=== PATIENT | female | born 1990 | race Caucasian/White ===

== ENCOUNTER 2017-04-07 14:00 | Inpatient (IN) | payer OTHER ==
[2017-04-14] MEDS ORDERED: Heparin 5,000 UNITS/ML VIAL ONE (08:49)
[2017-04-14] MEDS ORDERED: CEFAZOLIN/Water 2 GM/20 ML SYRINGE ONE (08:49)
[2017-04-14] MEDS ORDERED: Bupivacaine/Epinephrine 0.25% 30 ML VIAL ONE (08:57)
[2017-04-14] MEDS ORDERED: Midazolam HCl 2 mg/2 ml Vial ONE ×2 (09:05→09:06)
[2017-04-14] MEDS ORDERED: Lidocaine 1% (PF) 30 ML VIAL ONE (09:06)
[2017-04-14] MEDS ORDERED: Fentanyl 250 MCG/5 ML VIAL ONE (09:06)
[2017-04-14] MEDS ORDERED: HYDROmorphone 10 mg/100 ml CADD IVPB PRN (09:10)
[2017-04-14] MEDS ORDERED: Meperidine HCl/PF 25 MG/ML VIAL SLOW IVP PRN (09:10)
[2017-04-14] MEDS ORDERED: Zolpidem Tartrate 5 MG TAB PO PRN (09:10)
[2017-04-14] MEDS ORDERED: diphenhydrAMINE 25 MG CAP PO PRN (09:10)
[2017-04-14] MEDS ORDERED: Promethazine HCl 25 MG/ML VIAL SLOW IVP PRN (09:10)
[2017-04-14] MEDS ORDERED: Promethazine HCl 25 MG/ML VIAL IM PRN ×3 (09:10→10:22)
[2017-04-14] MEDS ORDERED: diphenhydrAMINE 50 MG/ML VIAL IM PRN (09:10)
[2017-04-14] MEDS ORDERED: Ondansetron HCl/PF 4 MG/2 ML Vial IVP PRN ×3 (09:10→10:22)
[2017-04-14] MEDS ORDERED: HYDROmorphone 2 MG/ML VIAL SLOW IVP PRN (09:10)
[2017-04-14] MEDS ORDERED: diphenhydrAMINE 50 MG/ML VIAL IVP PRN ×2 (09:10→10:22)
[2017-04-14] MEDS ORDERED: Naloxone HCl 0.4 mg/ml Vial IV PRN (09:10)
[2017-04-14] MEDS ORDERED: Communication Order-Pharmacy FS SCH (09:15)
[2017-04-14] MEDS ORDERED: Dextrose 5% in Water 1,000 ML IV PRN (10:22)
[2017-04-14] MEDS ORDERED: Hydrocodone-Acetamin 15 ML UDCUP PO PRN (10:22)
[2017-04-14] MEDS ORDERED: hydrALAZINE 20 MG/ML VIAL SLOW IVP PRN (10:22)
[2017-04-14] MEDS ORDERED: Dextrose 50% Abboject 50 ML SYRINGE SLOW IVP PRN (10:22)
[2017-04-14] MEDS ORDERED: D5 1/2 NS w/20 mEq KCL 1,000 ML ONE (11:07)
[2017-04-14] MEDS ORDERED: Ondansetron HCl/PF 4 MG/2 ML Vial ONE ×2 (11:08→15:12)
[2017-04-14] MEDS ORDERED: Acetaminophen 1,000 MG in Premix Bag 1 BAG IVPB SCH (12:00)
--- NOTE | 2017-04-14 12:01 | OP ---
DATE OF PROCEDURE: 04/14/2017 PREOPERATIVE DIAGNOSIS: Morbid obesity. SURGEON: Danielito Maldonado M.D. PROCEDURE: Laparoscopic sleeve gastrectomy, esophagogastroscopy. INDICATIONS: This is a 26-year-old female, morbidly obese, who has attempted multiple weight loss pr ograms without success. FINDINGS: A 38 Vietnamese bougie used. PROCEDURE IN DETAIL: After informed consent was obtained, the patient was taken to the operating [facility] m and given general endotracheal anesthesia. She was placed in the supine position. The abdomen was prepped and draped in usual fashion. Local anesthesia infiltrated subcutaneously and deep and a 12 mm incision was performed 8 inches below the xiphoid slightly to the left. Veress needle inserted. Drop test performed. Pneumoperitoneum was created to a volume of 2 liters of carbon dioxide. Utiliz ing a bladeless 12 mm trocar and 0 degree laparoscope direct visual entry in the abdominal cavity was performed. Pneumoperitoneum was created to a pressure of 15 mmHg. The patient placed in steep reve rse Trendelenburg position. Nathansen liver retractor inserted. Left lobe of liver retracted superi roberto carlos. The pylorus was identified and a 12 mm port placed on the right beneath it, two 12s placed lef t subcostal. The omentum was taken off the greater curvature 5 cm from the pylorus utilizing the Lig aSure. Short gastrics divided with the LigaSure. The left crura defined with the LigaSure. A 38-Fr ench bougie inserted directed into the antrum. The linear 60 mm green load stapler used to divide th e antrum to the bougie, gold load along the bougie, and a series of blues through the angle of His. Intraoperative endoscopy was performed. The video endoscope inserted under direct vision and advance d into the sleeve. The staple line inspected. There was no bleeding. Staple line then tested by in flating the new stomach with pressurized air under water. There is no air leak. Stomach decompresse d. Scope removed. The remnant stomach removed from the abdomen through the left lateral port site. The fascia closed with 0 Vicryl suture and the GraNee needle. Skin closed with interrupted 4-0 Rapi de. Dermabond applied. The patient tolerated the procedure well and was transferred to recovery in good condition. Sponge and needle count verified correct x2.
[2017-04-14] MEDS: D5 1/2 NS w/20 mEq KCL 1,000 ML IV SCH ×2 (14:21→20:03)
[2017-04-14] MEDS: Ketorolac Tromethamine 30 MG/ML VIAL IVP SCH ×2 (14:21→18:18)
[2017-04-14 14:24] VITALS: BMI 45.4
[2017-04-14] MEDS ORDERED: Dexamethasone 20 MG/5 ML VIAL ONE (15:12)
[2017-04-14] MEDS ORDERED: Glycopyrrolate 0.2 MG/ML 5 ML SYRINGE ONE (15:12)
[2017-04-14] MEDS ORDERED: Propofol 200 MG/20 ML VIAL ONE (15:12)
[2017-04-14] MEDS ORDERED: Lidocaine 1% PF 5 ML VIAL ONE (15:12)
[2017-04-14] MEDS ORDERED: Ketorolac Tromethamine 30 MG/ML VIAL ONE (15:12)
[2017-04-14] MEDS: Acetaminophen 1,000 MG in Premix Bag 1 BAG IVPB SCH ×2 (15:52→20:49)
[2017-04-14] MEDS: CEFAZOLIN/Water 2 GM/20 ML SYRINGE SLOW IVP SCH (18:19)
[2017-04-15] MEDS: Ketorolac Tromethamine 30 MG/ML VIAL IVP SCH ×3 (01:05→11:41)
[2017-04-15] MEDS: CEFAZOLIN/Water 2 GM/20 ML SYRINGE SLOW IVP SCH (01:06)
[2017-04-15] MEDS: D5 1/2 NS w/20 mEq KCL 1,000 ML IV SCH ×3 (02:52→09:28)
[2017-04-15] MEDS: Acetaminophen 1,000 MG in Premix Bag 1 BAG IVPB SCH ×2 (03:08→08:51)
[2017-04-15 04:35] LABS: #Lymphocytes 1.9 thou/uL (1.20-3.40); #Monocytes 0.9 thou/uL (0.11-0.59); #Neutrophils 5.8 thou/uL (1.40-6.50); %Eosinophils 0.1 % (0.0-10.0); %Lymphocytes 22.4 % (21.0-51.0); %Monocytes 10.1 % (0.0-10.0); %Neutrophils 67.4 % (42.0-75.0); Hemoglobin 10.5 g/dL (12.0-16.0); Mean Corpuscular HGB CONC 33.3 g/dL (32.0-36.0); Mean Corpuscular Hemoglobin 28.6 pg (27.0-31.0); Mean Corpuscular Volume 85.9 fl (81.0-99.0); Mean Platelet Volume 8.8 fL (7.4-10.4); Platelet Count 205 thou/uL (130-400); RBC Distribution Width 12.9 % (11.5-14.5); Red Blood Cell (RBC) Count 3.66 mill/uL (4.20-5.40); White Blood Cell (WBC) Count 8.6 thou/uL (4.8-10.8)
[2017-04-15 04:47] LABS: Anion Gap 10 mmol/L (10-20); BUN (Urea Nitrogen) Less than 4 mg/dL (7.0-18.7); Calc. Creatinine Clearance 275 mL/min (70-130); Calcium 8.8 mg/dL (7.8-10.44); Carbon Dioxide 24 mmol/L (22-29); Chloride 108 mmol/L (98-107); Estimated GFR-MDRD Greater than 90; Glucose 116 mg/dL (70-105); Potassium 3.8 mmol/L (3.5-5.1); Sodium 138 mmol/L (136-145)
[2017-04-15] MEDS ORDERED: Pantoprazole 40 MG VIAL IVP SCH (09:00)
[2017-04-15] MEDS ORDERED: Enoxaparin Sodium 40 MG/0.4 ML SYRINGE SC SCH (09:00)
--- NOTE | 2017-04-15 09:50 | RAD ---
LIMITED UPPER GI: 04/15/2017 HISTORY: Post bariatric surgery. FLUOROSCOPY: Fluoroscopy time is 0.7 minutes. Total dose is 2165.8 mGy per cm2. FINDINGS: Approximately 15 mL of Gastrografin was administered. There was transient holdup of contrast at the level of the GE junction, but contrast eventually passes into the stomach and subsequently into the s mall bowel. AP and oblique imaging were performed. There was no extravasation of contrast seen. Hoffman rgical clips overly the left upper quadrant, and there are post surgical changes related to the gastr ic sleeve procedure. IMPRESSION: Post surgical changes related to gastric sleeve procedure. There is transient holdup of contrast at the level of the gastroesophageal junction, but there is no extravasation of contrast to suggest a le ak, and contrast extends into the small bowel. POS: [facility]
[2017-04-15 11:50] VITALS: BP 108/77; TEMP 98.1
--- NOTE | 2017-04-15 14:04 | DIS ---
DISCHARGE DIAGNOSIS: Morbid obesity. PROCEDURES DURING ADMISSION: Laparoscopic sleeve gastrectomy, intraoperative esophagogastroscopy, po stoperative Gastrografin swallow. HOSPITAL COURSE: The patient was admitted, taken to the operating room where she underwent sleeve ga strectomy. Postoperatively, her x-ray is fine. She was started on liquids. She is tolerating well. She is discharged home in good condition on hydrocodone and Zofran. She will follow up with me in 2 weeks.
== END 2017-04-15 13:45 | disposition home or self-care (01) | DRG 621 ==
LOC: SURG A 04-14 07:11 → SURG B 04-14 12:38 → EEVIPCON 04-14 14:00
PROVIDERS: ADMIT Surgery; ATTEND Surgery
PROC: 0DB64Z3 Excision of Stomach, Percutaneous Endoscopic Approach, Vertical (ICD-10-PCS; principal; 2017-04-14)
PROC: 0DJ68ZZ Inspection of Stomach, Via Natural or Artificial Opening Endoscopic (ICD-10-PCS; 2017-04-14)
DX: E66.01 Morbid (severe) obesity due to excess calories (principal); Z68.42 Body mass index [BMI] 45.0-49.9, adult
CPT/HCPCS: 36415; 74241; 80048; 85025; 88307; 88312; 94760; C9113; J0131; J1100; J1644; J1650; J1885; J2001; J2250; J2405; J2704; J3010

== ENCOUNTER 2017-04-07 14:08 | Outpatient (CLI) | payer OTHER ==
[2017-04-07 15:06] LABS: #Eosinphils 0.2 thou/uL (0.0-0.7); #Lymphocytes 2.9 thou/uL (1.20-3.40); #Monocytes 0.5 thou/uL (0.11-0.59); #Neutrophils 4.5 thou/uL (1.40-6.50); %Basophils 0.1 % (0.0-1.0); %Eosinophils 1.9 % (0.0-10.0); %Lymphocytes 35.8 % (21.0-51.0); %Monocytes 6.7 % (0.0-10.0); %Neutrophils 55.5 % (42.0-75.0); Hemoglobin 11.7 g/dL (12.0-16.0); Mean Corpuscular HGB CONC 33.3 g/dL (32.0-36.0); Mean Corpuscular Hemoglobin 28.3 pg (27.0-31.0); Mean Corpuscular Volume 84.9 fl (81.0-99.0); Mean Platelet Volume 8.4 fL (7.4-10.4); Platelet Count 217 thou/uL (130-400); RBC Distribution Width 12.9 % (11.5-14.5); Red Blood Cell (RBC) Count 4.14 mill/uL (4.20-5.40); White Blood Cell (WBC) Count 8.1 thou/uL (4.8-10.8)
--- NOTE | 2017-04-07 15:22 | RAD ---
CHEST TWO VIEW: History: Pre op. Comparison: None. FINDINGS: Lungs are clear. No pneumothorax or effusion. Cardiac silhouette and mediastinal contours are within normal limits. IMPRESSION: No acute intrathoracic abnormality. POS: [facility]
[2017-04-07 15:27] LABS: ALT (SGPT) 22 U/L (8-55); AST (SGOT) 17 U/L (5-34); Albumin 4.2 g/dL (3.5-5.0); Alkaline Phosphatase 92 U/L (40-150); Anion Gap 10 mmol/L (10-20); BUN (Urea Nitrogen) 10 mg/dL (7.0-18.7); Bilirubin, Direct 0.2 mg/dL (0.1-0.3); Bilirubin, Total 0.5 mg/dL (0.2-1.2); Calc. Creatinine Clearance 0 mL/min (70-130); Calcium 9.2 mg/dL (7.8-10.44); Carbon Dioxide 28 mmol/L (22-29); Chloride 105 mmol/L (98-107); Estimated GFR-MDRD Greater than 90; Globulin 3.1 g/dL (2.4-3.5); Glucose 90 mg/dL (70-105); Potassium 3.7 mmol/L (3.5-5.1); Protein, Total 7.3 g/dL (6.0-8.3); Sodium 139 mmol/L (136-145)
--- NOTE | 2017-04-09 08:02 | EKG ---
Test Reason : Blood Pressure : / mmHG Vent. Rate : 068 BPM Atrial Rate : 068 BPM P-R Int : 170 ms QRS Dur : 086 ms QT Int : 410 ms P-R-T Axes : 064 068 050 degrees QTc Int : 435 ms Normal sinus rhythm Normal ECG No previous ECGs available Confirmed by DR. Pavan BAUGH ([id number]) on 04/09/2017 8:02:42 AM Referred By: JEZ Confirmed By:DR. Pavan BAUGH
== END 2017-04-07 14:09 | disposition home or self-care (01) ==
LOC: LABBT 14:08
PROVIDERS: ATTEND Surgery
DX: Z01.818 Encounter for other preprocedural examination (principal); E66.01 Morbid (severe) obesity due to excess calories
CPT/HCPCS: 71046; 80053; 80076; 83036; 85025; 93005; 93010

== ENCOUNTER 2017-08-18 15:54 | Outpatient (CLI) | payer OTHER | END 2017-08-18 15:55 | disposition home or self-care (01) | LOC: BICULT 15:54 | PROVIDERS: ATTEND Internal Medicine | DX: N64.89 Other specified disorders of breast (principal); N64.4 Mastodynia ==

== ENCOUNTER 2018-11-03 07:21 | Outpatient (CLI) | payer OTHER ==
--- NOTE | 2018-11-03 09:25 | ULT ---
ABDOMINAL ULTRASOUND: DATE: 11/03/2018. COMPARISON: None. HISTORY: Abnormal liver function tests. TECHNIQUE: Multiplanar, muniz scale, sonographic imaging of the abdomen provided. FINDINGS: Pancreas is poorly assessed secondary to obscuration by bowel gas and patient body habitus. The hepatic parenchyma is heterogeneous and echogenic suggesting hepatocellular disease, such as hepa tic steatosis. The common bile duct measures 3-4 mm, within normal limits. The gallbladder is contracted, limiting assessment of the gallbladder wall. Gallbladder wall is at t he upper limits of normal in size. The gallbladder appears filled with numerous echogenic foci with posterior shadowing suggesting multiple gallstones. The right kidney measures 12 cm in craniocaudal dimension and demonstrates no evidence for stone, hyd ronephrosis, or mass. The spleen measures up to 10.4 cm, within normal limits. Left kidney measures 10.4 cm craniocaudal d imension and demonstrates no evidence for stone, hydronephrosis, or mass lesion. The charge preparation technician does not report a positive Carter's sign. Imaged IVC and aorta appear within normal limits. IMPRESSION: Cholelithiasis. No sonographic evidence of acute cholecystitis or biliary dilatation. POS: [facility]
== END 2018-11-03 07:22 | disposition home or self-care (01) ==
LOC: ULT 07:21
PROVIDERS: ATTEND Physician Assistant
DX: R79.89 Other specified abnormal findings of blood chemistry (principal); K80.20 Calculus of gallbladder without cholecystitis without obstruction
CPT/HCPCS: 76700